=== PATIENT | female | born 1980 | race Native Hawaiian/Other Pacific Islander ===

== ENCOUNTER 2021-05-17 11:20 | Outpatient (CLI) | payer OTHER, SELFPAY ==
--- NOTE | 2021-05-17 11:54 | US_ITS ---
WS: [id number] RIGHT UPPER QUADRANT ULTRASOUND HISTORY: RUQ PAIN COMPARISON: None available. Liver: 14.4 cm in length. Normal size. Coarse echotexture from hepatic steatosis. No mass or bile cinthia t dilatation. Portal Vein: Normal hepatopetal flow with monophasic waveform. Gallbladder: Normally distended gallbladder with no stones or wall thickening. CBD: 0.5 cm Pancreas: Poorly visualized. Right kidney: 10.8 cm in length. Normal size and echogenicity. No hydronephrosis or mass. Aorta and IVC: Unremarkable abdominal aorta and IVC. No ascites. US/US gall bladder [id number] IMPRESSION: 1. Normal gallbladder. No cholelithiasis identified. 2. Mild hepatic steatosis. 3. Pancreas not visualized.
== END 2021-05-17 11:21 | disposition home or self-care (01) ==
LOC: RAD 11:45
PROVIDERS: PCP Family Medicine; Visit Provider Family Medicine
DX: R10.11 Right upper quadrant pain (principal); K76.0 Fatty (change of) liver, not elsewhere classified
CPT/HCPCS: 76705

== ENCOUNTER 2023-03-14 22:24 | Emergency (ER) | payer OTHER, SELFPAY ==
[2023-03-14 22:28] VITALS: BP 143/92; PULSE 95; RESP 18; TEMP 36.7; O2SAT 97; BMI 38.9
--- NOTE | 2023-03-15 00:21 | USR_ITS ---
PROCEDURE INFORMATION: Exam: US Abdomen, Limited; Right Upper Quadrant Exam date and time: 03/15/2023 1:08 AM Age: 42 years old Clinical indication: Abdominal pain; Prior surgery; Surgery date: 6+ months; Surgery type: Patient states she had lipo suction in the past; Additional info: Ruq pain TECHNIQUE: Imaging protocol: Real time ultrasound of the abdomen with image documentation. Limited exam focused on the right upper quadrant. COMPARISON: US gall bladder [id number] 05/17/2021 12:08 PM FINDINGS: Liver: The liver shows no solid mass. No visualized ascites. Liver is large and mildly steatotic measuring 16.6 cm. Gallbladder: The gallbladder shows no stones and has no wall thickening. Biliary ducts: No evidence of intrahepatic biliary dilation. No CBD dilation. Pancreas: The pancreas is not well seen due to overlying bowel gas. It shows no focal abnormality, however. Right kidney: Unremarkable. No solid renal mass or hydronephrosis. US/US gall bladder [id number] IMPRESSION: 1. No acute findings. 2. Liver is large and mildly steatotic measuring 16.6 cm.
[2023-03-15 00:38] LABS: Add Urine Microscopic? NO; Charge for UA Resulting for Rev
[2023-03-15 00:40] LABS: Bilirubin Urine Neg (Negative); Blood Urine Neg (Negative); Glucose Urine UA Norm (Normal); Ketones Urine Negative (Negative); Leukocyte Esterase Urine Negative (Negative); Nitrate Urine Negative (Negative); Protein Urine Neg (Negative); Urine Appearance Clear (CLEAR); Urine Color Yellow (Yellow); Urobilinogen Urine Norm (Negative); pH Urine 6.5 (5-7)
[2023-03-15] MEDS: ondansetron 2 mg/ML SDV 2 mL 4 MG IVP (00:59)
[2023-03-15] MEDS: sodium chloride 0.9% 1,000 ML 999 ML IV (00:59)
[2023-03-15] MEDS: ketorolac 30 mg/mL INJ IVP (01:00)
[2023-03-15 01:02] VITALS: RESP 18
[2023-03-15] MEDS: morphine 4 mg/mL SDV 1 mL IVP (01:02)
[2023-03-15 01:03] LABS: Basophils # 0.1 10^3/uL (0.0-0.1); Basophils % 0.5 %; Eosinophils # 0.2 10^3/uL (0.0-0.8); Eosinophils % 1.8 %; Hematocrit 41.2 % (36-47); Lymphocytes # 3.8 10^3/uL (0.8-4.8); Lymphocytes % 35.6 %; Mean Corpuscular HGB Conc 34.5 g/dL (30-55); Mean Corpuscular Hemoglobin 30.1 pg (27-33); Mean Corpuscular Volume 87.5 fl (85-98); Mean Platelet Volume 9.3 fL (7.4-10.4); Monocytes % 9.1 %; Neutrophils # 5.59 10^3/uL (1.8-7.7); Nucleated Red Blood Cells % 0 %; Platelet Count 399 10^3/cmm (157-399); Red Blood Count 4.71 10^6/uL (3.85-5.65); Red Cell Distribution Width 13.2 % (12.1-15.1); White Blood Count 10.74 10^3/uL (3.29-11.43)
[2023-03-15 01:15] LABS: HCG, Serum Qual Negative (Negative)
--- NOTE | 2023-03-15 01:26 | W.ED.ABDPA2 ---
HPI - Abdominal Pain General: Chief Complaint: Abdominal Pain Stated Complaint: upper right abd pain nausea Time Seen by Provider: 03/15/23 00:12 History of Present Illness: 42-year-old female with history of gallbladder problems . She says that she has been seen before for these similar complaints, and told it was her gallbladder. She has not seen a surgeon. With right upper quadrant pain and nausea. Pain has been off since . She denies fever. She states she threw up yesterday. She has had some intermittent diarrhea. Associated Symptoms: Reports diarrhea, nausea and vomiting; Denies chills, fever(s) and hematochezia Review of Systems Const: Denies: fever(s), chills or body aches Eyes: Denies: change in vision Card: Reports: chest pain; Denies: palpitations Resp: Reports: dyspnea; Denies: non-productive cough or wheezing GI: Reports: abdominal pain, nausea, vomiting and diarrhea; Denies: hematochezia : Denies: difficulty voiding Musc: Reports: back pain Skin/Breast: Denies: rash Neuro: Denies: headache(s), weakness in extremities, dizziness or confusion Physical Exam Const: COMMON NORMALS: no acute distress GENERAL APPEARANCE: cooperative; not ill appearing and not frail appearing HENMT: COMMON NORMALS: normocephalic, atraumatic and Normal external nose present HEAD & SCALP: normocephalic and atraumatic FACE & SINUS: normal facial exam and face symmetric NOSE: Normal external nose present Eye: COMMON NORMALS: Equal, round and reactive pupils present and EOMs intact bilaterally PUPIL: Yes Equal, round and reactive pupils present Neck/C-Spine: GENERAL: Yes trachea midline CERVICAL SPINE: No Lhermitte's sign positive Chest: CHEST: Yes Symmetrical chest wall rise Resp: COMMON NORMALS: normal respiratory effort, No retractions, No use of accessory muscles and clear to auscultation bilaterally AUSCULTATION: clear to auscultation bilaterally Cardio: COMMON NORMALS: regular rate and regular rhythm RATE: regular rate RHYTHM: regular rhythm GI: COMMON NORMALS: Normal to inspection, nondistended, normoactive bowel sounds present and Soft to palpation PALPATION: Yes Soft to palpation, Yes Tenderness to palpation present (GI) Details: RUQ, Yes Guarding due to palpation present (GI) and Yes Rigid due to palpation Extremity: COMMON NORMALS: no pedal edema Neuro: BETTYE COMA SCALE: document GCS findings Bettye coma scale eye opening: Spontaneous Bettye coma scale verbal response: Orientated Paige coma scale motor response: Obey commands Paige coma scale total score: 15 SENSORY EXAM: Yes extremities (intact) Psych: COMMON NORMALS: speech normal SPEECH: Yes normal speech Skin: COMMON NORMALS: no rashes or lesions noted GENERAL SKIN EXAM: no rashes or lesions noted Course Vital Signs: Vital signs: Vital Signs Temperature 98.0 F 03/14/23 22:28 Pulse Rate 95 03/14/23 22:28 Respiratory Rate 18 03/15/23 01:02 Blood Pressure 143/92 03/14/23 22:28 Pulse Oximetry 97 03/14/23 22:28 Oxygen Delivery Me thod Room Air 03/14/23 22:28 MDM - Abdominal Pain Medical Decision Making White blood cell count is normal. Hemoglobin is normal. Urinalysis is negative. Ultrasound shows fatty liver infiltrate with normal-appearing gallbladder. Liver enzymes are pending. Bilirubin is 0.3. Mild elevations in liver enzymes. CRP is 16. Pain is improved. Symptomatic treatment. Surgery clinic follow-up as an outpatient. Return for worsening symptoms despite treatment. Lab Data 03/15/23 00:00 03/15/23 01:34 Labs/Radiology: Radiology Impressions Gallbladder Ultrasound 03/15/23 00:21 IMPRESSION: 1. No acute findings. 2. Liver is large and mildly steatotic measuring 16.6 cm. Laboratory Results WBC 10.74 10^3/uL (3.29-11.43) 03/15/23 00:00 RBC 4.71 10^6/uL (3.85-5.65) 03/15/23 00:00 Hgb 14.20 g/dL (11.27-16.99) 03/15/23 00:00 Hct 41.2 % (36-47) 03/15/23 00:00 MCV 87.5 fl (85-98) 03/15/23 00:00 MCH 30.1 pg (27-33) 03/15/23 00:00 MCHC 34.5 g/dL (30-55) 03/15/23 00:00 RDW 13.2 % (12.1-15.1) 03/15/23 00:00 Plt Count 399 10^3/cmm (157-399) 03/15/23 00:00 MPV 9.3 fL (7.4-10.4) 03/15/23 00:00 Neut % (Auto) 52.0 % 03/15/23 00:00 Lymph % (Auto) 35.6 % 03/15/23 00:00 [place] % (Auto) 9.1 % 03/15/23 00:00 Eos % (Auto) 1.8 % 03/15/23 00:00 Baso % (Auto) 0.5 % 03/15/23 00:00 Neut # (Auto) 5.59 10^3/uL (1.8-7.7) 03/15/23 00:00 Lymph # (Auto) 3.8 10^3/uL (0.8-4.8) 03/15/23 00:00 [place] # (Auto) 1.0 10^3/uL (0.2-0.9) H 03/15/23 00:00 Eos # (Auto) 0.2 10^3/uL (0.0-0.8) 03/15/23 00:00 Baso # (Auto) 0.1 10^3/uL (0.0-0.1) 03/15/23 00:00 Nucleated RBC % (auto) 0 % 03/15/23 00:00 Nucleated RBCs # 0.0 /100WBC 03/15/23 00:00 Sodium 140 mmol/L (136-145) 03/15/23 01:34 Potassium 4.1 mmol/L (3.5-5.1) 03/15/23 01:34 Chloride 103 mmol/L (98-107) 03/15/23 01:34 Carbon Dioxide 24 mmol/L (22-29) 03/15/23 01:34 Anion Gap 17.1 (5-19) 03/15/23 01:34 BUN 9 mg/dL (6-20) 03/15/23 01:34 Creatinine 0.4 mg/dL (0.5-0.9) L 03/15/23 01:34 GFR Calculation 175.0 mL/min (90-130) H 03/15/23 01:34 Glucose 97 mg/dL (65-115) 03/15/23 01:34 Calculated Osmolality 289 mOsm/kg (285-295) 03/15/23 01:34 Calcium 9.6 mg/dL (8.5-10.5) 03/15/23 01:34 Total Bilirubin 0.3 mg/dL (0.15-1.2) 03/15/23 01:34 AST 34 U/L (0-32) H 03/15/23 01:34 ALT 37 U/L (0-33) H 03/15/23 01:34 Alkaline Phosphatase 68 U/L (35-105) 03/15/23 01:34 C-Reactive Protein 15.8 mg/L (0.0-4.9) H 03/15/23 01:34 Total Protein 7.7 g/dL (6.6-8.7) 03/15/23 01:34 Albumin 4.3 g/dL (3.5-5.2) 03/15/23 01:34 Globulin 3.4 g/dL (1.3-4.6) 03/15/23 01:34 Lipase 34 U/L (13-60) 03/15/23 01:34 HCG, Qual Negative (Negative) 03/15/23 00:00 Urine Color Yellow (Yellow) 03/15/23 00:21 Urine Appearance Clear (CLEAR) 03/15/23 00:21 Urine pH 6.5 (5-7) 03/15/23 00:21 Ur Specific [place] 1.010 (1.005-1.030) 03/15/23 00:21 Urine Protein Neg (Negative) 03/15/23 00:21 Urine Glucose (UA) Norm (Normal) 03/15/23 00:21 Urine Ketones Negative (Negative) 03/15/23 00:21 Urine Blood Neg (Negative) 03/15/23 00:21 Urine Nitrate Negative (Negative) 03/15/23 00:21 Urine Bilirubin Neg (Negative) 03/15/23 00:21 Urine Urobilinogen Norm mg/dL (Negative) 03/15/23 00:21 Ur Leukocyte Esterase Negative (Negative) 03/15/23 00:21 All radiology interpretation(s) finalized by discharge Discharge Plan Discharge Patient Disposition: Home Clinical Impression: Biliary colic Condition: Stable Prescriptions: New hydrocodone-acetaminophen 5-325 mg tablet 1 tab PO Q8H PRN (Reason: pain) Qty: 7 0RF ondansetron 4 mg tablet,disintegrating 4 mg PO Q6H PRN (Reason: nausea and vomiting) Qty: 14 0RF No Action amitriptyline 10 mg tablet 10 mg PO DAILY All Day Allergy (cetirizine) 10 mg capsule 10 mg PO DAILY PRN norgestimate-ethinyl estradiol [Tri-Sprintec (28)] 0.18/0.215/0.25 mg-35 mcg (28) tablet 1 tab PO DAILY pantoprazole [Protonix] [address] for susp in packet 40 mg PO DAILY Discharge Orders: Discharge ED (Routine); Ordered 03/15/23 Ordered By: Papa Sierra Referrals: Jose Flores MD [Physician] - 4-7 days Boni Tucker [Primary Care Provider] - Patient Instructions: Biliary Colic (ED), Abdominal Pain (ED), Opioid Safety, Pain Management Activity Restrictions/Additional Instructions: Return for fever, worsening pain despite treatment, vomiting liquids or medications, other concerning symptoms. Call the surgery clinic on Thursday, let them know you were seen here. They will make an outpatient follow-up appointment for you. Coding Level of Care Code ED Entry Level Marketing Representative for Kaylin Pollack
[2023-03-15 01:58] LABS: Alanine Aminotransferase 37 U/L (0-33); Albumin Level 4.3 g/dL (3.5-5.2); Alkaline Phosphatase 68 U/L (35-105); Anion Gap 17.1 (5-19); Aspartate Amino Transferase 34 U/L (0-32); Blood Urea Nitrogen 9 mg/dL (6-20); C Reactive Protein 15.8 mg/L (0.0-4.9); Calcium 9.6 mg/dL (8.5-10.5); Carbon Dioxide 24 mmol/L (22-29); Chloride 103 mmol/L (98-107); Globulin 3.4 g/dL (1.3-4.6); Glucose 97 mg/dL (65-115); Lipase 34 U/L (13-60); Osmolality Calculated 289 mOsm/kg (285-295); Potassium 4.1 mmol/L (3.5-5.1); Sodium 140 mmol/L (136-145); Total Bilirubin 0.3 mg/dL (0.15-1.2); Total Protein 7.7 g/dL (6.6-8.7)
[2023-03-15 03:00] VITALS: PULSE 80; RESP 14; O2SAT 97
== END 2023-03-15 03:00 | disposition home or self-care (01) ==
PROVIDERS: Emergency Provider Emergency Medicine; PCP Family Medicine
DX: K80.50 Calculus of bile duct without cholangitis or cholecystitis without obstruction (principal)
CPT/HCPCS: 36415; 76705; 80053; 81003; 83690; 84703; 85025; 86140; 96374; 96375; 99284; J1885; J2270; J2405; J7030

== ENCOUNTER 2023-04-09 07:42 | Outpatient (CLI) | payer OTHER, SELFPAY ==
--- NOTE | 2023-04-09 08:00 | NM_ITS ---
WS: [id number] NUCLEAR MEDICINE HIDA SCAN CLINICAL INFORMATION: abdominal pain TECHNIQUE: Following intravenous administration of 7.6 mCi of technetium 99m mebrofenin, images of th e abdomen were obtained over the course of 60 minutes. Next, gallbladder ejection fraction was determ ined by obtaining preprandial and one-hour postprandial images of the gallbladder following oral mariama stion of Ensure. COMPARISON: None. FINDINGS: Hepatomegaly. Normal hepatic uptake at 5 minutes. Normal hepatic excretion. Gallbladder is visualized by 15 minutes. No evidence of acute cholecystitis. Normal common bile duct and small bowel activity. Gallbladder ejection fraction 54% within normal limits. No evidence of chronic cholecystitis. IMPRESSION: 1. No evidence of acute or chronic cholecystitis. 2. Gallbladder ejection fraction of 54% within normal limits.
== END 2023-04-09 07:43 | disposition home or self-care (01) ==
PROVIDERS: PCP Nurse Practitioner Family; Visit Provider Surgery
DX: R10.9 Unspecified abdominal pain (principal)
CPT/HCPCS: 78227; A9537

== ENCOUNTER 2023-04-15 13:43 | Outpatient (CLI) | payer OTHER, SELFPAY ==
--- NOTE | 2023-04-15 13:52 | CT_ITS ---
WS: [id number] CT ABDOMEN WITHOUT CONTRAST HISTORY: RUQ PAIN Contiguous single phase 5 mm axial imaging performed to the abdomen. Oral contrast has been provided. Coronal and sagittal reformats are submitted. All CT scans at [facility] use at least one of these dose optimization techniques: automated exposure control; mA and/or kV adjustment per patient size (includes targeted exams where dose is matched to clinical indication); or iterative reconstruct ion. IV CONTRAST: None Oral contrast: Yes. DLP: 622.99 mGy.cm COMPARISON: No prior studies. Lower thorax: Lung bases are clear. Heart is normal size. Small hiatal hernia. Liver/biliary system: 19.0 cm in length. Marked low-attenuation throughout the liver. The liver exten ds across the midline, lateral to the stomach. No bile duct dilatation. Gallbladder: Normal. No gallstones or wall thickening. No pericholecystic fluid. Pancreas: Normal size pancreas and pancreatic duct. No adjacent inflammation. Spleen: Normal size spleen. No mass or infarct. Adrenal glands: Normal. Right kidney: Normal. Left kidney: Normal. Aorta: Normal. Lymphadenopathy: None. Free fluid: None. GI tract: As visualized in the abdomen negative. Abdominal wall: Unremarkable abdominal wall. No hernia. Visualized osseous structures: Unremarkable. IMPRESSION: 1. Moderately enlarged liver with severe hepatic steatosis. 2. No acute abdomen abnormalities. No bile duct dilatation. No renal obstruction.
[2023-04-15] MEDS: barium sulfate 450 mL Oral Susp PO (13:54)
== END 2023-04-15 13:44 | disposition home or self-care (01) ==
LOC: RAD 13:45
PROVIDERS: PCP Nurse Practitioner Family; Visit Provider Nurse Practitioner Family
DX: R10.11 Right upper quadrant pain (principal); R16.0 Hepatomegaly, not elsewhere classified; K76.0 Fatty (change of) liver, not elsewhere classified
CPT/HCPCS: 74150

== ENCOUNTER 2023-04-30 06:52 | Day surgery (SDC) | payer OTHER, SELFPAY ==
--- NOTE | 2023-04-30 06:34 | P.HPUD_ITS ---
Surgery/Procedure H&P Update DATE OF PROCEDURE: April 30, 2023 DATE H&P PERFORMED: 04/14/23 H&P UPDATE INFORMATION: I have reviewed H&P completed within last 30 days, I have examined patient prior to procedure, No changes to prior documentation and H&P is in [facility] EMR on date indicated PLANNED PROCEDURE: Operation Date: 04/30/23 07:55 Proposed Procedures p [id number] egd : R10.11(Not Applicable) - Jose Flores MD
--- NOTE | 2023-04-30 06:34 | W.PM.OPSUD ---
Surgery/Procedure H&P Update DATE OF PROCEDURE: April 30, 2023 DATE H&P PERFORMED: 04/14/23 H&P UPDATE INFORMATION: I have reviewed H&P completed within last 30 days, I have examined patient prior to procedure, No changes to prior documentation and H&P is in [facility] EMR on date indicated PLANNED PROCEDURE: Operation Date: 04/30/23 07:55 Proposed Procedures p [id number] egd : R10.11(Not Applicable) - Jose Flores MD
[2023-04-30 07:07] VITALS: BP 162/106; PULSE 90; RESP 18; TEMP 36.1; O2SAT 96; BMI 39.8
[2023-04-30] MEDS: sodium chloride 0.9% 1,000 ML 30 ML IV (07:15)
[2023-04-30 07:22] LABS: OR HCG Qualitative Urine Negative (Negative)
--- NOTE | 2023-04-30 07:49 | ANES.PREANE2 ---
Pre-Anesthetic Assessment Height/Weight: Height 1.6 m Weight 102.058 kg Temp Pulse Resp BP Pulse Ox O2 Del Method 97 F L 90 18 162/106 96 Room Air 04/30/23 07:07 04/30/23 07:07 04/30/23 07:07 04/30/23 07:07 04/30/23 07:07 04/30/23 07:07 Operation Date: 04/30/23 07:55 Proposed Procedures p [id number] egd : R10.11(Not Applicable) - Jose Folres MD Familial anesthetic complications: None Was Beta Magdiel taken within 24 hours: N/A Was Clonidine taken within 24 hours: N/A Last intake: Intake Last Liquid Date 04/29/23 Last Liquid Time 23:59 Last Solid Date 04/29/23 Last Solid Time 21:00 Social No alcohol and No tobacco Exam alert, oriented x 3, clear to auscultation bilaterally and regular rate & rhythm Airway Mallampati: Class III Dentition: chipped GI Gastroesophageal Reflux Disease Metabolic Morbid Obesity Anesthetic Plan ASA status: 2 Anesthesia: MAC Risk of > 500 ml blood loss (7ml/kg in children): No Medications/Allergies Home Medications Medication Instructions Recorded Confirmed Last Taken Type amitriptyline 10 mg tablet 10 mg PO DAILY 01/09/23 04/28/23 04/28/23 History cetirizine 10 mg capsule (All Day 10 mg PO DAILY PRN Allergy Symptoms 01/09/23 04/28/23 04/29/23 History Allergy (cetirizine)) norgestimate-ethinyl estradiol 1 tab PO DAILY 01/09/23 04/28/23 04/29/23 History 0.18 mg/0.215mg/0.25mg-35 mcg(28)tablet (Tri-Sprintec (28)) ondansetron 4 mg disintegrating 4 mg PO Q6H PRN nausea and 03/15/23 04/28/23 04/09/23 Rx tablet vomiting #14 tabs bupropion HCl 150 mg tablet,12 hr 150 mg PO BID 04/28/23 04/28/23 04/23/23 History sustained-release naltrexone 50 mg tablet 50 mg PO BID 04/28/23 04/28/23 04/16/23 History pantoprazole 40 mg tablet,delayed 40 mg PO DAILY 04/28/23 04/28/23 04/29/23 History release Allergies Allergy/AdvReac Type Severity Reaction Status Date / Time Iodinated Contrast Media Allergy ALGY-Anaphy Verified 04/14/23 15:09 laxis Current Medications Generic Name Dose Route Start Last Admin Trade Name Freq PRN Reason Stop Dose Admin Sodium Chloride 1,000 mls @ 30 mls/hr 04/30/23 07:00 04/30/23 07:15 Sodium Chloride 0.9% IV 30 mls/hr .Q24H JONNY Administration PFSH Anesthesia Female Reproductive History Date of last menstrual period: 03/31/23 Data Anesthesia Cardiac Studies: No Data to Display
[2023-04-30 08:13] VITALS: BP 136/84; PULSE 89; RESP 18; TEMP 36.3; O2SAT 97
[2023-04-30 08:27] VITALS: BP 138/88; PULSE 83; RESP 18; O2SAT 97
--- NOTE | 2023-04-30 08:45 | ANE.PACU2 ---
Inpatient post-anesthesia follow up: Airway intact: Yes Vital signs: Temperature 97.4 F Pulse Rate 83 Respiratory Rate 18 Blood Pressure 138/88 Pulse Oximetry 97 Oxygen Delivery Me thod Room Air Oxygen Flow Rate Fraction of Inspir ed Oxygen Hydration adequate: Yes Nausea and vomiting: No Pain level: 1 Mental status: Baseline
== END 2023-04-30 08:45 | disposition home or self-care (01) ==
PROVIDERS: Anesthesiology; PCP Nurse Practitioner Family; Visit Provider Surgery
PROC: 0DJ08ZZ Inspection of Upper Intestinal Tract, Via Natural or Artificial Opening Endoscopic (ICD-10-PCS; CPT 43235; principal; 2023-04-30 07:55)
DX: R10.11 Right upper quadrant pain (principal); K29.50 Unspecified chronic gastritis without bleeding; K21.9 Gastro-esophageal reflux disease without esophagitis; E66.01 Morbid (severe) obesity due to excess calories; Z68.39 Body mass index [BMI] 39.0-39.9, adult
CPT/HCPCS: 43239; 81025; 84703; 88305; J2704; J7030

== ENCOUNTER → 2023-07-16 13:58 | Outpatient (BNVA) | payer OTHER, SELFPAY | PROVIDERS: PCP Nurse Practitioner Family; Visit Provider Podiatrist Foot & Ankle Surgery | DX: M77.41 Metatarsalgia, right foot; M24.571 Contracture, right ankle | CPT/HCPCS: 73630 ==

== ENCOUNTER 2023-12-16 14:16 | Outpatient (CLI) | payer OTHER, SELFPAY ==
--- NOTE | 2023-12-16 14:17 | MM_ITS ---
WS: [id number] BILATERAL 3D TOMOSYNTHESIS DIGITAL SCREENING MAMMOGRAPHY WITH CAD CLINICAL INFORMATION: SCREENING HISTORY: Screening mammogram. No current complaints. COMPARISON: 2021 TECHNIQUE: Bilateral CC and MLO views. FINDINGS: Scattered fibroglandular densities bilaterally. No suspicious focal mass, asymmetry, calcifications, or architectural distortion. No evidence of malignancy. Lucent centered calcification RIGHT breast. I ntramammary lymph node upper outer LEFT breast with a fatty hilum MM/MM scr tomosynthesis [id number] IMPRESSION: DENSITY: There are scattered areas of fibroglandular density. BI-RADS: 2 - Benign. FOLLOW UP: 1 Year Follow-up Recommend return to annual screening mammography.
== END 2023-12-16 14:17 | disposition home or self-care (01) ==
LOC: RAD 14:16
PROVIDERS: PCP Nurse Practitioner Family; Visit Provider Advanced Practice Midwife
DX: Z12.31 Encounter for screening mammogram for malignant neoplasm of breast (principal); R92.323 Mammographic fibroglandular density, bilateral breasts; R92.1 Mammographic calcification found on diagnostic imaging of breast
CPT/HCPCS: 77063; 77067

== ENCOUNTER 2025-01-30 10:15 | Outpatient (CLI) | payer OTHER, SELFPAY ==
--- NOTE | 2025-01-30 10:24 | MM_ITS ---
WS: [id number] Bilateral screening 3D tomosynthesis digital mammogram, 01/30/2025 10:25 AM Clinical Data: SCREENING Comparison: 12/16/2023, 09/26/2021. Findings: No spiculated masses or clustered calcifications are seen. There are no secondary signs of carcinoma. MM/MM scr BI tomosynthesis [id number] Impression: Negative bilateral mammogram unchanged. Recommend annual screening mammograms. BIRADS: 1 - Negative. FOLLOW UP: 1 Year Follow-up DENSITY: There are scattered areas of fibroglandular density. The CAD packing checker was used
== END 2025-01-30 10:16 | disposition home or self-care (01) ==
LOC: RAD 10:18
PROVIDERS: PCP Nurse Practitioner Family; Visit Provider Advanced Practice Midwife
DX: Z12.31 Encounter for screening mammogram for malignant neoplasm of breast (principal); R92.323 Mammographic fibroglandular density, bilateral breasts
CPT/HCPCS: 77063; 77067